=== PATIENT | male | born 1985 | race Caucasian/White ===

== ENCOUNTER 2018-06-11 21:12 | Emergency (ER) | payer MEDICAID ==
[~2018-06-11] VITALS: Ht 190.5 cm; Wt 98.6 kg
[2018-06-11 21:17] VITALS: Ht 190.5 cm; Wt 98.6 kg
[2018-06-11] MEDS ORDERED: ONDANSETRON (ODT) 4 MG TAB ODT STA (22:42)
--- NOTE | 2018-06-11 22:57 | ERD ---
ER Documentation Chief Complaint Chief Complaint C/O RT WRIST PAIN S/P SLIP AND FALL HPI This is a 32-year-old gentleman who presents to the emergency room with right wrist pain and an abrasion to the right frontal scalp. He states just prior to arrival he slipped while getting out of the shower. He is right-hand dominant and has deformity and pain that is 8 out of 10 and throbbing to the right distal radius and distal ulna. Patient also hit his head and he has a small abrasion and hematoma to the right frontal forehead. He denies loss of consciousness, anticoagulants, nausea or vomiting. No neck pain. No other injuries noted. ROS All systems reviewed and are negative except as per history of present illness. Medications Home Meds Active Scripts Ondansetron (Ondansetron Odt) 4 Mg Tab.rapdis, 4 MG PO Q6H PRN for NAUSEA AND/OR VOMITING, #10 TAB Prov:NESSA SLATER MD 06/11/18 Ibuprofen* (Motrin*) 800 Mg Tab, 800 MG PO Q6H PRN for PAIN AND OR ELEVATED TEMP, #30 TAB Prov:NESSA SLATER MD 06/11/18 Hydrocodone/Acetaminophen ([place] 5-325 Tablet) 1 Each Tablet, 1 TAB PO Q6H PRN for PAIN, #7 TAB Prov:NESSA SLATER MD 06/11/18 Allergies Allergies: Coded Allergies: No Known Drug Allergies (Verified Allergy, Unknown, 06/11/18) PMhx/Soc Hx Miscellaneous Medical Probl: Yes (lupus) Hx Alcohol Use: No Hx Substance Use: No Hx Tobacco Use: No Smoking Status: Never smoker FmHx Family History: No diabetes Physical Exam Vitals Vital Signs Date Temp Pulse Resp B/P (MAP) Pulse Ox O2 O2 Flow FiO2 Time Delivery Rate 06/11/18 96.5 84 19 117/74 98 21:17 (88) Physical Exam Airway is intact Bilateral breath sounds Strong distal pulses No obvious deficits General: Well developed, well nourished, no acute distress Head: Small abrasion hematoma to the right forehead. No deformities. Eyes: Pupils equally reactive, EOM intact ENT: Moist mucous membranes Neck: Supple, no lymphadenopathy, No midline tenderness, deformities, step-offs to the cervical spine, full active and passive range of motion without midline pain. Respiratory: Lungs clear bilaterally, no distress, no chest wall tenderness, no crepitus Cardiovascular: RRR, no murmurs, rubs, or gallops Abdominal: Soft, non-tender, non-distended, no peritoneal signs, pelvis is s table : Deferred MSK: The patient has soft tissue deformity to the distal radius of the right wrist and tenderness to the ulnar styloid. The patient has 2+ radial and ulnar pulses. Good hand grasp. No snuffbox tenderness. No focal tenderness to the e lbow, humerus or shoulder of the right upper extremity. Neurologic: Alert and oriented, moving all extremities, normal speech, no focal weakness, no cerebellar signs Skin: No ecchymoses or bruising to the chest or abdomen Psych: Normal mood Results 24 hrs Current Medications Medications Dose Sig/Myrtle Start Time Status Last (Trade) Ordered Route PRN Stop Time Admin Dose Reason Admin 1 tab ONCE ONCE 06/11/18 DC 06/11/18 Acetaminophen PO 23:00 22:50 / 06/11/18 23:01 Hydrocodone Bitart ([place] (10/325)) Ondansetron 4 mg ONCE STAT 06/11/18 DC 06/11/18 HCl (Zofran ODT 22:42 22:50 Odt) 06/11/18 22:44 Procedures/MDM EKG, MONITORS, & DIAGNOSTIC IMAGING: X-ray right wrist: I reviewed and interpreted multiple views of the x-ray Bones: Comminuted and slightly displaced distal radius fracture, ulnar styloid fracture nondisplaced Soft tissue: No evidence of foreign body PROCEDURES: Splint Application Note: Splint type: Fabricate Ortho-Glass, sugar tong Extremity: Right wrist Indication: Fracture The patient was consented at bedside prior to splint application and states understanding of risks, benefits, and alternatives. The patient was neurovascularly intact prior to and status post application of the splint. The patient tolerated the procedure well and there were no complications. MEDICAL DECISION MAKING: Patient had a mechanical trip and fall. He does have head injury but no loss of consciousness, no red flags concerning for clinically significant traumatic brain injury. Tetanus is up-to-date. No indication for CT imaging of the brain. The patient does not meet high-risk criteria and based on NEXUS cervical spine criteria there is no indication for cervical spine imaging at this time. Patient has evidence of right wrist injury consistent with likely mild Colles' fracture and possible ulnar styloid fracture. He is right-hand dominant and warrants outpatient hand surgery follow-up. Unlikely would require closed reduc tion in the emergency room setting. The patient will benefit from immobilization and prompt outpatient hand surgery follow-up. ER COURSE: * X-ray imaging and immobilization as documented above * Patient given [place] for pain * Wound care provided * The patient can be safely discharged with close outpatient primary care and and surgery follow-up. CONSULTATION: None DISPOSITION PLAN: The patient does not have an identifiable emergent medical condition that warrants inpatient hospitalization at this time. The patient is deemed safe for discharge with outpatient follow-up. We discussed follow up with the patient's primary care doctor within 24 to 48 hours as needed. We also discussed return to the emergency room for worsening symptoms or worsening condition. Outpatient referral: Hand surgery, orthopedics Discharge Medications: [place], Zofran, Motrin NARCOTIC MEDICATION: The patient has been prescribed a narcotic medication during this encounter. The patient has been warned about the use of narcotics. The patient should not drive or operate heavy machinery while taking this medication. The patient was also warned about the addictive properties of narcotic medications. Narcan prescription was NOT provided given the following criteria: 1. No more than 5 tablets of [place] 10 mg or 10 tablets of [place] 5 mg were prescribed. 2. Concomitant opiate and benzodiazepine prescriptions were not provided. 3. There is no obvious evidence of prior history of opiate abuse or overdose. Departure Diagnosis: Primary Impression: Closed head injury Encounter type: initial encounter Qualified Codes: S09.90XA - Unspecified injury of head, initial encounter Additional Impressions: Closed fracture of right distal radius Encounter type: initial encounter Fracture morphology: Colles' Qualified Codes: S52.531A - Colles' fracture of right radius, initial encounter for closed fracture Closed fracture of distal end of right ulna Encounter type: initial encounter Fracture morphology: other fracture Qualified Codes: S52.691A - Other fracture of lower end of right ulna, initial encounter for closed fracture Condition: NESSA Parikh MD Jun 11, 2018 22:57
[2018-06-11] MEDS ORDERED: HYDROCODONE/APAP (10/325) TAB PO ONE (23:00)
[2018-06-11] MEDS ORDERED: HYDR-4011 PO (23:22)
[2018-06-11] MEDS ORDERED: ONDA4TAB14 PO (23:22)
[2018-06-11] MEDS ORDERED: IBUP800T48 PO (23:22)
[2018-06-11 23:31] VITALS: BP 120/81; PULSE 81; RESP 19
== END 2018-06-12 00:13 | disposition home or self-care (01) ==
LOC: FTE 21:12
DX: S00.81XA Abrasion of other part of head, initial encounter (principal); S52.531A Colles' fracture of right radius, initial encounter for closed fracture; S52.691A Other fracture of lower end of right ulna, initial encounter for closed fracture; W01.198A Fall on same level from slipping, tripping and stumbling with subsequent striking against other object, initial encounter; Y92.9 Unspecified place or not applicable
CPT/HCPCS: 29125; 73110; Z7502; Z7610